=== PATIENT | male | born 1965 | race African-American/Black ===

== ENCOUNTER 2017-11-19 16:39 | Outpatient (CLI) | END 2017-11-19 16:40 | disposition home or self-care (01) | LOC: LAB 16:39 | PROVIDERS: ATTEND Emergency Medicine | DX: E11.69 Type 2 diabetes mellitus with other specified complication (principal); E66.9 Obesity, unspecified; E78.5 Hyperlipidemia, unspecified; I10 Essential (primary) hypertension; Z12.5 Encounter for screening for malignant neoplasm of prostate | CPT/HCPCS: 36415; 80061; 83036; 84443; 85025 ==

== ENCOUNTER 2017-12-28 13:16 | Emergency (ER) ==
[2017-12-28 13:29] VITALS: TEMP 97.6; BMI 68.2
--- NOTE | 2017-12-28 14:03 | ED.PDOC ---
General ED Provider: Dr. DASHA HALLMAN Chief Complaint: Chest Pain Stated Complaint: Short of Air; chest tightness last weekend Time Seen by Physician: 12:50 Mode of Arrival: Wheelchair Information Source: Patient Exam Limitations: No limitations Primary Care Provider: [facility] Nursing and Triage Documentation Reviewed and Agree: Yes Reviewed sepsis parameters & appropriate labs ordered?: Yes (Not applicable) System Inflammatory Response Syndrome: Not Applicable Sepsis Protocol: For patient's 13 years and over: Temp is 96.8 and below OR 101 and greater Pulse >90 BPM Resp >20/minute Acutely Altered Mental Status Are patient's symptoms suggestive of a new infection, such as: -Pneumonia -Skin, Soft Tissue -Endocarditis -UTI -Bone, Joint Infection -Implantable Device -Acute Abdominal Infection -Wound Infection -Meningitis -Blood Stream Catheter Infection -Unknown System Inflammatory Response Syndrome: Not Applicable Review of Systems - Review Of Systems Constitutional: Reports: Diaphoresis Eyes: Reports: No symptoms Respiratory: Reports: Short of air Cardiac: Reports: Chest pain (Right chest) GI: Reports: No symptoms Musculoskeletal: Reports: No symptoms All Other Systems: Reviewed and Negative Past Medical History - Past Medical History Previously Healthy: No (Hx of O2 use; then off for 2 years - now SOA again) Endocrine: Reports: None Cardiovascular: Reports: Hypertension Respiratory: Reports: None Hematological: Reports: None Gastrointestinal: Reports: None Genitourinary: Reports: None Neuro/Psych: Reports: None Musculoskeletal: Reports: None Cancer: Reports: None - Surgical History General Surgical History: Reports: None - Family History Family History: Reports: None - Social History Smoking Status: Never smoker Hx Substance Use: Yes Alcohol Screening: None Physical Exam - Physical Exam Appearance: Well-appearing Pain Distress: None (when examined by me) Neck: Supple Respiratory: Airway patent, Breath sounds clear, Breath sounds equal Cardiovascular: RRR, Pulses normal GI/: Soft, Nontender Musculoskeletal: Normal strength, ROM intact Skin: Warm, Dry, Normal color Neurological: Sensation intact, Motor intact, Alert, Oriented Psychiatric: Affect appropriate, Mood appropriate Interpretation - Radiology Interpretation Radiology Interpretation By: Radiologist Exam Interpreted: Portable CXR (Mild pulmonary vascular congestion) - EKG Interpretation Time of EKG #1: 13:42 Rate: Normal Rhythm: Sinus Ectopy: None ST Segment: Other (ST changes) Re-Evaluation - Re-Evaluation Time of Re-Evaluation: 16:35 Status: Improved (Doing OK while on O2) Vital Signs Stable: Yes Appearance: NAD Lungs: Clear Skin: Warm and Dry - Re-Evaluation Time of Re-Evaluation: 17:30 (Pt does not want to transfer; understands need for tranfer) Status: Unchanged (NAD but drops O2 to 80 when off O2; educated patient re need to transfer) Physician Notification - Case Discussed Physician Notified: Dr. Sorensen Time of Notification: 17:40 (Suggest transfer to [facility]) Physician Notified: Dr. Aguilar/Hospitalist [facility] Time of Notification: 18:05 (Discused pt/transfer) Critical Care Note - Critical Care Note Total Time (mins): 45 Course - Course Hematology/Chemistry: 12/28/17 14:01 12/28/17 14:17 Orders, Labs, Meds: Lab Review 12/28/17 12/28/17 12/28/17 13:50 14:01 14:17 WBC 4.43 RBC 4.61 L Hgb 13.1 L Hct 42.6 MCV 92.4 MCH 28.4 MCHC 30.8 L RDW Coeff of Natividad 15.0 H Plt Count 205 Immature Gran % (Auto) 0.2 Neut % (Auto) 62.8 Lymph % (Auto) 23.7 [place] % (Auto) 10.8 H Eos % (Auto) 2.3 Baso % (Auto) 0.2 Immature Gran # (Auto) 0.0 Neut # 2.8 Lymph # 1.1 [place] # 0.5 Eos # 0.1 Baso # 0.0 Puncture Site Rrad O2 Saturation 76.0 L ABG pH 7.352 ABG pCO2 49.4 H ABG pO2 43.0 L* ABG HCO3 27.4 H ABG Total CO2 29 H ABG Base Excess 2 Lex Test + FiO2 % 21.0 Sodium 141 Potassium 4.7 Chloride 105 Carbon Dioxide 27 Anion Gap 13.7 BUN 20 H Creatinine 1.33 H Estimated GFR (MDRD) 68.00 BUN/Creatinine Ratio 15.03 Glucose 107 H Calcium 8.9 Total Bilirubin 0.6 AST 25 ALT 28 Alkaline Phosphatase 59 Troponin I B-Natriuretic Peptide Total Protein 6.8 Albumin 3.2 L Globulin 3.6 Albumin/Globulin Ratio 0.89 12/28/17 12/28/17 14:17 14:30 WBC RBC Hgb Hct MCV MCH MCHC RDW Coeff of [place]ivid[place] Plt Count Immature Gran % (Auto) Neut % (Auto) Lymph % (Auto) [place] % (Auto) Eos % (Auto) Baso % (Auto) Immature Gran # (Auto) Neut # Lymph # [place] # Eos # Baso # Puncture Site O2 Saturation ABG pH ABG pCO2 ABG pO2 ABG HCO3 ABG Total CO2 ABG Base Excess Lex Test FiO2 % Sodium Potassium Chloride Carbon Dioxide Anion Gap BUN Creatinine Estimated GFR (MDRD) BUN/Creatinine Ratio Glucose Calcium Total Bilirubin AST ALT Alkaline Phosphatase Troponin I 0.0110 B-Natriuretic Peptide 399 H Total Protein Albumin Globulin Albumin/Globulin Ratio Orders Category Date Time Status ABG DRAW REQUEST Stat CARDIO 12/28/17 13:50 Completed EKG-(ED ONLY) Stat CARDIO 12/28/17 13:51 Completed ABG Stat LAB 12/28/17 13:50 Completed BNP [B-TYPE NATRIURETIC PEPTIDE] Stat LAB 12/28/17 14:17 Completed CBC W/ AUTO DIFF Stat LAB 12/28/17 14:01 Completed COMPREHENSIVE METABOLIC PANEL Stat LAB 12/28/17 14:17 Completed TROPONIN I Stat LAB 12/28/17 14:30 Completed CHEST, 1V AP ONLY Stat RADS 12/28/17 14:01 Completed Vital Signs: Temp Pulse Resp BP Pulse Ox 12/28/17 18:02 60 122/90 93 L 12/28/17 13:23 97.6 F 88 28 H 147/87 H 86 L JONATHON Risk Score JONATHON Risk Score: Risk Score Odds of by 30D 0 0.1 (0.1-0.2) 1 0.3 (0.2-0.3) 2 0.4 (0.3-0.5) 3 0.7 (0.6-0.9) 4 1.2 (1.0-1.5) 5 2.2 (1.9-2.6) 6 3.0 (2.5-3.6) 7 4.8 (3.8-6.1) Departure - Departure Time of Disposition: 18:20 Disposition: TSF SHORT-TRM HOSP Discharge Problem: CHF (congestive heart failure) Instructions: Heart Failure (ED) Condition: Stable Pt referred to PMD for follow-up: Yes (Follow up after discharge from hospital) IPMP verified?: No (No narcotic planned) Allergies/Adverse Reactions: Allergies No Known Allergies Allergy (Verified 12/28/17 13:29) Home Medications: Ambulatory Orders Lisinopril/Hydrochlorothiazide [Lisinopril-Hctz 20-12.5 Mg Tab] 1 each PO d Metformin HCl 1,000 mg PO BID 11/19/17 Phentermine HCl 37.5 mg PO PRN PRN 12/28/17 Sildenafil Citrate [Viagra] 100 mg PO PRN PRN 12/28/17
--- NOTE | 2017-12-28 14:33 | DI ---
EXAM: CHEST FRONTAL VIEW HISTORY: Chest pain. COMPARISON: 03/26/2016 FINDINGS: Heart size is prominent. Limited exam. Cannot exclude mild central vascular congestion. No obvious consolidated pneumonia, pneumothorax, pleural fluid or acute bony deformity. IMPRESSION: Cardiomegaly. Questionable mild pulmonary vascular congestion.
[2017-12-28 18:03] VITALS: BP 122/90
== END 2017-12-28 18:30 | disposition short-term general hospital (02) ==
LOC: ED 13:16
DX: I50.9 Heart failure, unspecified (principal); R07.9 Chest pain, unspecified; R06.02 Shortness of breath
CPT/HCPCS: 36415; 80053; 82803; 83880; 84484; 85025; 93005; 93010; 99285

== ENCOUNTER 2018-07-28 11:34 | Outpatient (CLI) | END 2018-07-28 11:35 | disposition home or self-care (01) | LOC: RHC-LAB 11:34 | PROVIDERS: ATTEND Nurse Practitioner Family | DX: E11.69 Type 2 diabetes mellitus with other specified complication (principal); I10 Essential (primary) hypertension; E78.5 Hyperlipidemia, unspecified | CPT/HCPCS: 36415; 80053; 80061; 82043; 83037; 84443; 85025 ==

== ENCOUNTER 2018-11-09 14:44 | Outpatient (CLI) | END 2018-11-09 14:45 | disposition home or self-care (01) | LOC: RHC-LAB 14:44 | PROVIDERS: ATTEND Nurse Practitioner Family | DX: E11.69 Type 2 diabetes mellitus with other specified complication (principal); I10 Essential (primary) hypertension; E66.01 Morbid (severe) obesity due to excess calories; E78.5 Hyperlipidemia, unspecified; Z12.5 Encounter for screening for malignant neoplasm of prostate | CPT/HCPCS: 36415; 80053; 80061; 83036; 84443; 85025 ==

== ENCOUNTER 2019-02-07 08:47 | Outpatient (CLI) | END 2019-02-07 08:48 | disposition home or self-care (01) | LOC: RHC-LAB 08:47 | PROVIDERS: ATTEND Nurse Practitioner Family | DX: E11.69 Type 2 diabetes mellitus with other specified complication (principal); E66.9 Obesity, unspecified; I10 Essential (primary) hypertension | CPT/HCPCS: 36415; 80053; 83036 ==

== ENCOUNTER 2019-03-08 17:12 | Outpatient (CLI) | END 2019-03-08 17:37 | disposition short-term general hospital (02) | LOC: AMBL 17:12 | PROVIDERS: ATTEND Emergency Medicine | DX: R06.9 Unspecified abnormalities of breathing (principal); Z99.81 Dependence on supplemental oxygen ==

== ENCOUNTER 2019-07-07 10:23 | Outpatient (CLI) | END 2019-07-07 10:24 | disposition home or self-care (01) | LOC: RHC-LAB 10:23 | PROVIDERS: ATTEND Nurse Practitioner Family | DX: R81 Glycosuria (principal); R80.9 Proteinuria, unspecified | CPT/HCPCS: 81001; 87086; 87186 ==

== ENCOUNTER 2020-01-13 01:11 | Inpatient (IN) ==
--- NOTE | 2020-01-13 02:02 | ED.PDOC ---
General ED Provider: Dr. SHARLENE THOMPSON Chief Complaint: Shortness of Air Stated Complaint: Patient is a 54 year old male who comes to the ER with complaints of increasing shortness of breath for the past week. Also thinks he may have gained some water weight not sure how much he has gained. Time Seen by Physician: 01:30 Mode of Arrival: Wheelchair Information Source: Patient Primary Care Provider: ISABEL CHAO APRN, FNP-BC Nursing and Triage Documentation Reviewed and Agree: Yes Does patient meet sepsis criteria?: No System Inflammatory Response Syndrome: Not Applicable Sepsis Protocol: For patient's 13 years and over: Temp is 96.8 and below OR 101 and greater Pulse >90 BPM Resp >20/minute Acutely Altered Mental Status Are patient's symptoms suggestive of a new infection, such as: -Pneumonia -Skin, Soft Tissue -Endocarditis -UTI -Bone, Joint Infection -Implantable Device -Acute Abdominal Infection -Wound Infection -Meningitis -Blood Stream Catheter Infection -Unknown Respiratory Complaint Exam Shortness of Air Complaint/Exam Onset/Duration: 1 week Symptoms Are: Still present Timing: Intermittent Initial Severity: Moderate Current Severity: Moderate Character: Reports Dyspnea at rest Aggravating: Reports Weather; Denies Smoke exposure Alleviating: Reports Oxygen Associated Signs and Symptoms: Reports Cough and Rapid breathing Related History: Reports Similar episode History of Healthcare-Acquired Pneumonia: No Pulmonary Embolism Risk Factors: Reports None Cardiac Risk Factors: Reports None Home Oxygen Use: Yes (5 liters ) Recent Stress Test: No Recent Echo/LV Function: No Stridor Present: No Tracheal Deviation: No Subcutaneous Emphysema: No Accessory Muscle Use: No Retractions: Not Present Diminished Breath Sounds: No Prolonged Expiratory Phase: No Unable to Speak Full Sentences: No Fatigue: No Leg Swelling: No Jett's Sign Present: No Grunting Respirations: No Kussmaul Respirations: No Differential Diagnoses: Asthma, CHF and COPD Exacerbation Quality Indicator For Non-Traumatic Chest Pain/Syncope: EKG Performed Review of Systems Review Of Systems Constitutional: Reports No symptoms Eyes: Reports No symptoms Ears, Nose, Mouth, Throat: Reports No symptoms Respiratory: Reports Cough (non productive cough ) and Short of air Cardiac: Denies Chest pain GI: Reports No symptoms Musculoskeletal: Reports No symptoms Skin: Reports No symptoms Neurological: Reports Anxiety All Other Systems: Reviewed and Negative [facility] Medical History (Updated 01/13/20 @ 03:32 by SHARLENE THOMPSON MD) Adverse effect of lisinopril (Acute) Colonoscopy refused (Acute) Diabetes mellitus Hypertension Hypertension (Acute) Other specified events, undetermined intent, initial encounter Physical Exam Physical Exam Appearance: Reports Obese Ill-appearing: Moderate Pain Distress: None Eyes: Reports DENIS and EOMI ENT: Reports Ears normal Neck: Supple Respiratory: Reports Airway patent, Breath sounds clear and Breath sounds equal Cardiovascular: Reports RRR, Pulses normal and No rub GI/: Reports Soft Musculoskeletal: Reports Edema (1-2 + pitting edema ) Skin: Reports Warm and Dry Neurological: Reports Sensation intact, Motor intact, Alert and Oriented Psychiatric: Reports Anxious Interpretation Radiology Interpretation Radiology Interpretation By: Radiologist EKG Interpretation Time of EKG #1: 02:00 Rate: Normal Rhythm: Sinus Ectopy: None [place]: NL ST Segment: Normal Interpretation: Right ventricular Hypertophy, Possible inferor infarct age undetermined. Physician Notification Case Discussed Physician Notified: Carton Stenciler Time of Notification: 03:20 (ok to admit ) Critical Care Note Critical Care Note Total Time (mins): 45 Course Course Hematology/Chemistry: 01/13/20 02:17 01/13/20 02:17 Orders, Labs, Meds: Lab Review 01/13/20 01/13/20 01/13/20 01:45 02:05 02:17 WBC 5.46 RBC 5.32 Hgb 13.6 L Hct 46.4 MCV 87.2 MCH 25.6 L MCHC 29.3 L RDW Coeff of Natividad 17.0 H Plt Count 266 Immature Gran % (Auto) 0.2 Neut % (Auto) 71.0 Lymph % (Auto) 16.5 [place] % (Auto) 9.0 Eos % (Auto) 2.9 Baso % (Auto) 0.4 Immature Gran # (Auto) 0.0 Neut # (Auto) 3.9 Lymph # (Auto) 0.9 [place] # (Auto) 0.5 Eos # (Auto) 0.2 Baso # (Auto) 0.0 Puncture Site Rrad O2 Saturation 66.0 L ABG pH 7.426 ABG pCO2 44.2 ABG pO2 34.0 L* ABG HCO3 29 H ABG Total CO2 30 H ABG Base Excess 5 H Lex Test + FiO2 % 21.0 Sodium Potassium Chloride Carbon Dioxide Anion Gap BUN Creatinine Estimated GFR (MDRD) BUN/Creatinine Ratio Glucose Lactic Acid Calcium Total Bilirubin AST ALT Alkaline Phosphatase NT-Pro-B Natriuret Pep Total Protein Albumin Globulin Albumin/Globulin Ratio Procalcitonin Influ A Molecular Assay Negative by naat Influ B Molecular Assay Negative by naat 01/13/20 01/13/20 01/13/20 02:17 02:17 02:17 WBC RBC Hgb Hct MCV MCH MCHC RDW Coeff of Natividad Plt Count Immature Gran % (Auto) Neut % (Auto) Lymph % (Auto) [place] % (Auto) Eos % (Auto) Baso % (Auto) Immature Gran # (Auto) Neut # (Auto) Lymph # (Auto) [place] # (Auto) Eos # (Auto) Baso # (Auto) Puncture Site O2 Saturation ABG pH ABG pCO2 ABG pO2 ABG HCO3 ABG Total CO2 ABG Base Excess Lex Test FiO2 % Sodium 136.0 Potassium 3.86 Chloride 97.6 L Carbon Dioxide 29.5 Anion Gap 12.76 BUN 47.4 H Creatinine 1.83 H Estimated GFR (MDRD) 47.00 BUN/Creatinine Ratio 25.90 Glucose 119.7 H Lactic Acid 1.65 Calcium 7.90 L Total Bilirubin 0.76 AST 27.2 ALT 19.3 Alkaline Phosphatase 57.9 NT-Pro-B Natriuret Pep 5340.000 H Total Protein 6.59 Albumin 3.70 Globulin 2.89 Albumin/Globulin Ratio 1.28 Procalcitonin 0.07 Influ A Molecular Assay Influ B Molecular Assay Orders Category Date Time Status ABG DRAW REQUEST Stat CARDIO 01/13/20 01:52 Completed ABG DRAW REQUEST Stat CARDIO 01/13/20 03:06 Completed ABG DRAW REQUEST Stat CARDIO 01/13/20 03:15 Ordered ECHOCARDIOGRAM 2D-M MODE Routine CARDIO 01/13/20 03:16 Ordered EKG-(ED ONLY) Stat CARDIO 01/13/20 02:02 Completed NEBULIZER TREATMENT Stat CARDIO 01/13/20 02:03 Completed INTAKE & OUTPUT Q8HR CARE 01/13/20 03:17 Active 2 GRAM SODIUM DIET DIETARY 01/13/20 Breakfast Ordered ED APPLY O2 .ONCE EMERGENCY 01/13/20 01:51 Active ED TINWARE LITHOGRAPH PRESS OPERATOR APPLIED .ONCE EMERGENCY 01/13/20 01:51 Active ED VITAL SIGNS Q1HR EMERGENCY 01/13/20 01:51 Active IV [ED IV/MEDIPORT/POWERPORT] .ONCE EMERGENCY 01/13/20 02:15 Active OXYGEN [ED APPLY O2] .ONCE EMERGENCY 01/13/20 03:20 Active ABG Stat LAB 01/13/20 01:45 Completed ABG Stat LAB 01/13/20 03:15 Ordered BASIC METABOLIC PANEL DAILY@0600 LAB 01/14/20 06:00 Ordered BLOOD CULTURE (ED ONLY) Stat LAB 01/13/20 02:17 Received CBC W/ AUTO DIFF DAILY@0600 LAB 01/14/20 06:00 Ordered CBC W/ AUTO DIFF Stat LAB 01/13/20 02:17 Completed COMPREHENSIVE METABOLIC PANEL Stat LAB 01/13/20 02:17 Completed FLU A/B MOLECULAR Stat LAB 01/13/20 02:05 Completed LACTIC ACID Stat LAB 01/13/20 02:17 Completed NT-PROBNP Stat LAB 01/13/20 02:17 Completed PROCALCITONIN Stat LAB 01/13/20 02:17 Completed TROPONIN I Stat LAB 01/13/20 02:17 Received 0.9 % Sodium Chloride [Saline Flush] MEDS 01/13/20 02:15 Active 1 syr IVF PRN PRN Albuterol Sulfate [Proair Hfa] MEDS 01/13/20 03:24 Ordered 2 inh IH Q4-6H PRN Atenolol [Tenormin] MEDS 01/13/20 09:00 Ordered 50 mg PO DAILY Enoxaparin Sodium [Lovenox] MEDS 01/13/20 09:00 Ordered 40 mg SUBCUT DAILY Furosemide [Lasix] MEDS 01/13/20 02:03 Discontinued 20 mg IVP ONCE STA Furosemide [Lasix] MEDS 01/13/20 09:00 Ordered 40 mg IVP BID Ipratropium/Albuterol Neb [Duoneb] MEDS 01/13/20 02:03 Discontinued 3 ml NEB ONCE STA Losartan Potassium [Cozaar] MEDS 01/13/20 09:00 Ordered 50 mg PO DAILY Metformin HCl [Glucophage] MEDS 01/13/20 09:00 Ordered 500 mg PO BID Methylprednisolone Sod Succ/Pf [Solu-Medrol 125 mg] MEDS 01/13/20 02:10 Discontinued 125 mg IVP ONCE STA Methylprednisolone Sod Succ/Pf [Solu-Medrol 40 mg] MEDS 01/13/20 05:00 Stop Req 40 mg IVP Q8HR Potassium Chloride [Micro-K Cap] MEDS 01/13/20 09:00 Ordered 10 meq PO DAILY dapagliflozin [Farxiga] MEDS 01/13/20 09:00 Ordered 5 mg PO DAILY RESUSCITATION STATUS Routine OTHERS 01/13/20 03:16 Ordered CHEST, 2 VIEWS PA & LAT Stat RADS 01/13/20 01:51 Completed Medications Generic Name Dose Route Start Last Admin Trade Name Frederickq PRN Reason Stop Dose Admin Albuterol Sulfate puff 01/13/20 03:24 Proair Hfa IH Q4-6H PRN shortness of breath Atenolol 50 mg 01/13/20 09:00 Tenormin PO DAILY ROSEMARY Enoxaparin Sodium 40 mg 01/13/20 09:00 Lovenox SUBCUT DAILY ROSEMARY Furosemide 40 mg 01/13/20 09:00 Lasix IVP BID ROSEMARY Losartan Potassium 50 mg 01/13/20 09:00 Cozaar PO DAILY ROSEMARY Metformin HCl 500 mg 01/13/20 09:00 Glucophage PO BID ROSEMARY Methylprednisolone Sodium Succinate 40 mg 01/13/20 05:00 Solu-Medrol 40 Mg IVP Q8HR ROSEMARY Non-Formulary Medication 5 mg 01/13/20 09:00 Dapagliflozin [Farxiga] PO DAILY ROSEMARY Potassium Chloride 10 meq 01/13/20 09:00 Micro-K Cap PO DAILY ROSEAMRY Sodium Chloride 1 syr 01/13/20 02:15 Saline Flush IVF PRN PRN To flush IV Discontinued Medications Generic Name Dose Route Start Last Admin Trade Name Owen PRN Reason Stop Dose Admin Albuterol/Ipratropium 3 ml 01/13/20 02:03 01/13/20 02:10 Duoneb NEB 01/13/20 02:04 3 ml ONCE STA Administration Furosemide 20 mg 01/13/20 02:03 01/13/20 02:14 Lasix IVP 01/13/20 02:04 20 mg ONCE STA Administration Methylprednisolone Sodium Succinate 125 mg 01/13/20 02:10 01/13/20 02:14 Solu-Medrol 125 Mg IVP 01/13/20 02:11 125 mg ONCE STA Administration Vital Signs: Temp Pulse Resp BP Pulse Ox 01/13/20 02:18 69 19 101/64 94 L 01/13/20 01:13 97.8 F 74 36 H 110/53 L 75 L Discharge Plan Discharge Patient Disposition: ADMITTED INPATIENT Discharge Problem: Acute exacerbation of CHF (congestive heart failure) Prescriptions: No Action silver sulfadiazine [Silvadene] 20 GM cream 1 percent topical BID PRN (Reason: lower leg "sores") Qty: 1 RF: 0 phentermine 30 MG capsule 30 mg PO DAILY PRN (Reason: ENERGY) RF: 0 (DME) blood-glucose meter 1 EACH misc 1 ea MC DAILY Qty: 1 RF: 0 (DME) blood sugar diagnostic [Blood Glucose Test] 1 EACH strip 1 ea MC DAILY Qty: 50 RF: 3 (DME) lancets 1 EACH misc 1 ea MC DAILY Qty: 50 RF: 3 sildenafil [Viagra] 100 MG tablet 50 mg PO PRN PRN (Reason: intercourse) Qty: 5 RF: 0 losartan 50 mg tablet 50 mg PO DAILY RF: 0 metolazone 2.5 mg tablet 2.5 mg PO DAILY PRN (Reason: DIURETIC) RF: 0 metformin 500 mg tablet 500 mg PO BID RF: 0 potassium chloride 10 mEq tablet extended release 10 meq PO DAILY RF: 0 bumetanide 1 mg tablet 1 mg PO BID RF: 0 albuterol sulfate [ProAir HFA] 90 mcg/actuation HFA aerosol inhaler 2 inh inhalation Q4-6H PRN (Reason: SHORT OF BREATH/WHEEZING) RF: 0 atenolol 50 mg tablet 50 mg PO DAILY RF: 0 Farxiga 5 mg tablet 5 mg PO DAILY RF: 0 ED Provider: SHARLENE THOMPSON Condition: Fair
[2020-01-13] MEDS ORDERED: LASIX IVP STA (02:03)
[2020-01-13] MEDS ORDERED: DUONEB NEB STA (02:03)
[2020-01-13] MEDS ORDERED: SOLU-MEDROL 125 MG IVP STA (02:10)
[2020-01-13 02:26] LABS: HEMATOCRIT 46.4 % (42.0-52.0)
--- NOTE | 2020-01-13 03:15 | DI ---
EXAM: Chest two views HISTORY: Shortness of breath FINDINGS: Normal cardiac and mediastinal contours. Normal pulmonary vasculature. Lungs are clear. Granulomatous lymph node calcifications of the left hilum. No significant abnormality of the bony t horax. IMPRESSION: No acute cardiopulmonary disease
[2020-01-13] MEDS ORDERED: PROAIR HFA (SINGLE PATIENT USE) IH PRN (03:24)
[2020-01-13 04:30] VITALS: BMI 63.6
[2020-01-13] MEDS ORDERED: ALBUTEROL 0.083% NEB NEB PRN ×2 (04:47→10:59)
[2020-01-13] MEDS: DUONEB NEB SCH ×5 (04:55→22:00)
[2020-01-13] MEDS ORDERED: SOLU-MEDROL 40 MG IVP SCH (05:00)
--- NOTE | 2020-01-13 08:49 | ECHO2D ---
Date of Exam: 01/13/2020 Ordering Physician: HOSPITALIST--ANDREA NOWAK Room #: 122 Reason for Echo: CHF, HTN, DM M-Mode Normal Adult Results LV Dimensions Normal Adult Results AoV Opening excursions >1.6 >1.6 LVEDD-base- 3.5-5.8 4.0 Ao root dimensions 2.0-3.7 3.7 LVESD-base- 3.1-4.6 L. Atrium dimensions 1.9-3.8 5.0 Post. Wall thickness 0.8-1.1 1.6 IV septum (thickness) 0.7-1.2 1.7 Post. Wall excursion 0.72-1.3 NORMAL Septal motion NORMAL Systolic motion R. Ventricular cavity 1.5-2.0 4.5 LVEF 60% 87% Paradoxical septal wall motion NORMAL 2-D : 2-D M Mode Echocardiogram was performed using apical four chamber and left parasternal long and short axis views. Mitral, tricuspid and aortic valves appear to be normal. Contractility of the left ventricle seems to be normal, so is the cavity size. ENLARGED LEFT ATRIAL CAVITY. ENLARGED RIGHT VENTRICLE CAVITY. Aortic root appears to be normal. There is no pericardial effusion. There is no thrombus noted in the left ventricle or left atrial cavity. No mitral valve prolapse noted. M-MODE: MV: NORMAL AV: NORMAL TV: NORMAL PV: CHAMBER SIZE: ENLARGED LEFT ATRIAL CAVITY WALL MOTION: NORMAL PERICARDIUM: NORMAL INTERPRETATION: 1. MODERATE TO SEVERE LEFT VENTRICULAR HYPERTROPHY 2. ENLARGED LEFT ATRIAL CAVITY (5.0 CM)/ ENLARGED RIGHT VENTRICLE CAVITY 3. NORMAL LEFT VENTRICULAR CONTRACTILITY 4. NORMAL VALVES MTDD
[2020-01-13] MEDS ORDERED: TENORMIN PO SCH (09:00)
[2020-01-13] MEDS ORDERED: LASIX IVP SCH (09:00)
[2020-01-13] MEDS ORDERED: MICRO-K CAP PO SCH (09:00)
[2020-01-13] MEDS ORDERED: GLUCOPHAGE PO SCH (09:00)
[2020-01-13] MEDS: LOVENOX SUBCUT SCH (09:09)
[2020-01-13] MEDS: NON-FORMULARY MEDICATION (Dapagliflozin [Farxiga] 5 MG) PO SCH (09:09)
[2020-01-13] MEDS: COZAAR PO SCH (09:09)
--- NOTE | 2020-01-13 11:20 | PCM ---
Chief Complaint Chief Complaint: "dizzy and short of breath" History of Present Illness History of Present Illness: Mr. Lugo is a 54 year old male with hypertension, DM II not on insulin therapy, GEE not using CPAP, chronic kidney disease, morbid obesity and congestive heart failure who presents to the emergency department overnight with complaint of dizziness and shortness of breath. In emergency he is found to be short of breath with hypoxemia by ABG, BNP >5000, CXR without any acute process such as pulmonary edema, O2 sats <90 consistently with oxygen via nasal cannula@5lpm. Hospitalist admission for possible decompensated heart failure and hypoxemia with worsening renal failure. Pt is interviewed and examined at the bedside on the medical unit. No family is present. Pt states he is not sure if he has heart failure. He can't remember if he has had an echocardiogram in the past or not, and, if so, it probably was more than a year ago. Pt is on continuous oxgyen therapy at home. He says he has had problems with leg swelling in the past off and on but not recently. He has noticed that he is getting more and more short of breath and this has worsened over the past 2 weeks. His breathing is especially short with any exertion such as walking or bathing. He says he doesn't usually have chest pain, but, when he does have some discomfort "across my chest, I take some ibuprofen and it goes away". He hasn't taken nitroglycerin. He has been able to continue to take care of his ADLs with multiple rest periods during the day. He uses a cane to assist in ambulation due to feeling dizzy and gait being off. He says he has sleep a pnea and has CPAP machine but hasn't really used it. He is not able to use the mask due to feeling he is smothering. He says he didn't know there were nasal prongs he could use. He says the CPAP company staff calls him but he never discussed this with them. He states he was to go back for follow up with PCP but didn't go as scheduled so he then ran out of some of his medicines. He saw his primary care provider about 1 1/2 months ago and everything seemed to be fine. Pt is a rather poor historian and admits he has memory issues which he attributes to "being almost 55 years old and being a man, your memory gets short". Review of Systems Constitutional: Reports weakness and fatigue Eyes: Denies blurred vision, double-vision, discharge, itching, pain, redness, photophobia and other Ears: Denies pain, bleeding, drainage, ringing, hearing loss and other Nose: Denies bleeding, congestion, discharge and other Throat: Denies pain, swelling, voice change and other Mouth: Denies bleeding, pain, swelling and other Respiratory: Reports shortness of air Cardiovascular: Reports chest pain (states relieved with ibuprofen; denies orthopnea) Gastrointestinal: Denies abdominal pain, nausea, vomiting, diarrhea, melena, hematemesis, hematochezia, dysphagia, constipation and other Genitourinary: Reports frequency Neurological: Reports headache and dizziness Musculoskeletal: Denies pain, swelling in joints and other Skin: Denies rash, pruritus, lacerations, wounds, bruising and other Endocrine: Reports polyuria Psychiatric: Denies depression, anxiety, sleeplessness, hopelessness, suicidal, hallucinations and other Habits: Denies tobacco use, substance use, alcohol use and other Allergies Allergies Allergy/AdvReac Type Severity Reaction Status Date / Time atorvastatin calcium AdvReac Mild chills Verified 01/13/20 01:27 [From Lipitor] [facility] Medical History (Updated 01/13/20 @ 14:38 by [facility] ANALYTICS DIRECTOR) Adverse effect of lisinopril (Acute) Colonoscopy refused (Acute) Diabetes mellitus Diabetes mellitus with hyperglycemia, without long-term current use of insulin (Acute) Hypertension Hypertension (Acute) GEE (obstructive sleep apnea) (Acute) Other specified events, undetermined intent, initial encounter Surgical History (Updated 01/13/20 @ 04:14 by LICHA JOAQUIN RN) Status post bariatric surgery Family History (Updated 01/13/20 @ 14:26 by [facility] ANALYTICS DIRECTOR) BROTHER Hyperlipidemia Hypertension Grandfather/Grandmother Diabetes Mother No problems noted. FATHER No problems noted. Other Stomach cancer Social History (Updated 01/13/20 @ 14:27 by [facility] ANALYTICS DIRECTOR) Smoking and tobacco status: Never smoker Alcohol intake: former Details: previously heavy drinker of lilliam for about 8 years; quit 10 years ago Household members: none Housing: apartment Lives independently: Yes Current diet type/program: diabetic and low salt Well-balanced diet: rarely Water heater temperature set < 120 degrees: Yes Working smoke detector in home: Yes Fire extinguisher in home: Yes Carbon monoxide detector in home: Yes Firearms in home: Yes Firearms unloaded and locked: Yes Medications Medications: Medications Generic Name Dose Route Start Last Admin Trade Name Freq PRN Reason Stop Dose Admin Albuterol Sulfate 2 puff 01/13/20 03:24 Proair Hfa IH Q4-6H PRN shortness of breath Albuterol Sulfate 2.5 mg 01/13/20 10:59 Albuterol 0.083% Neb NEB RTQ4H PRN Wheezing Albuterol/Ipratropium 3 ml 01/13/20 06:00 01/13/20 10:16 Duoneb NEB 3 ml RTQ4H ROSEMARY Administration Atenolol 50 mg 01/13/20 09:00 01/13/20 09:08 Tenormin PO 50 mg DAILY ROSEMARY Administration Enoxaparin Sodium 40 mg 01/13/20 09:00 01/13/20 09:09 Lovenox SUBCUT 40 mg DAILY ROSEMARY Administration Furosemide 40 mg 01/13/20 13:00 Lasix IVP Q8HR ROSEMARY Insulin Human Regular 0 unit 01/13/20 10:50 Humulin R SUBCUT PRN PRN Hyperglycemia Protocol Losartan Potassium 50 mg 01/13/20 09:00 01/13/20 09:09 Cozaar PO 50 mg DAILY ROSEMARY Administration Metformin HCl 500 mg 01/13/20 09:00 01/13/20 09:08 Glucophage PO 500 mg BID ROSEMARY Administration Non-Formulary Medication 5 mg 01/13/20 09:00 01/13/20 09:09 Dapagliflozin [Farxiga] PO 5 mg DAILY ROSEMARY Administration Potassium Chloride 10 meq 01/13/20 09:00 01/13/20 09:08 Micro-K Cap PO 10 meq DAILY ROSEMARY Administration Sodium Chloride 1 syr 01/13/20 02:15 Saline Flush IVF PRN PRN To flush IV Body Composition Height: 6 ft Weight: 469 lb Body Mass Index (BMI): 63.6 Vital Signs Temperature: 97.9 F Pulse Rate: 71 Respiratory Rate: 18 Blood Pressure: 101/64 O2 Sat by Pulse Oximetry: 87 Physical Examination Appearance: Reports Well-appearing and Obese Eyes: Reports DENIS, EOMI and Conjunctiva clear Neck: Supple Respiratory: Reports Airway patent and Breath sounds diminished (breath sounds seem diminished may be related to girth; no wheezes crackles heard; slight increased work of breathing noted) Cardiovascular: Reports RRR and Pulses normal GI/: Reports Soft, Nontender, Bowel sounds normal and No Organomegaly (abdomen large protuberant; HSM difficult to assess due to girth) Musculoskeletal: Reports Normal strength, ROM intact and Edema (trace non- pitting edema bilateral LE) Skin: Reports Warm, Dry and Normal color (bilat LE discolored due to previous vascular congestion) Neurological: Reports Sensation intact, Motor intact, Cranial nerves intact, Alert and Oriented Psychiatric: Reports Affect appropriate (poor memory, appears out of keeping with stated age) Lab/Tests/Diagnostic Imaging Lab/Tests/Diagnostic Imaging: Lab Review 01/13/20 01/13/20 01/13/20 01:45 02:05 02:17 WBC 5.46 RBC 5.32 Hgb 13.6 L Hct 46.4 MCV 87.2 MCH 25.6 L MCHC 29.3 L RDW Coeff of Natividad 17.0 H Plt Count 266 Immature Gran % (Auto) 0.2 Neut % (Auto) 71.0 Lymph % (Auto) 16.5 Brooke % (Auto) 9.0 Eos % (Auto) 2.9 Baso % (Auto) 0.4 Immature Gran # (Auto) 0.0 Neut # (Auto) 3.9 Lymph # (Auto) 0.9 Brooke # (Auto) 0.5 Eos # (Auto) 0.2 Baso # (Auto) 0.0 Puncture Site Rrad O2 Saturation 66.0 L ABG pH 7.426 ABG pCO2 44.2 ABG pO2 34.0 L* ABG HCO3 29 H ABG Total CO2 30 H ABG Base Excess 5 H Lex Test + FiO2 % 21.0 Sodium Potassium Chloride Carbon Dioxide Anion Gap BUN Creatinine Estimated GFR (MDRD) BUN/Creatinine Ratio Glucose Lactic Acid Calcium Total Bilirubin AST ALT Alkaline Phosphatase Troponin I NT-Pro-B Natriuret Pep Total Protein Albumin Globulin Albumin/Globulin Ratio Procalcitonin Influ A Molecular Assay Negative by naat Influ B Molecular Assay Negative by naat 01/13/20 01/13/20 01/13/20 02:17 02:17 02:17 WBC RBC Hgb Hct MCV MCH MCHC RDW Coeff of Natividad Plt Count Immature Gran % (Auto) Neut % (Auto) Lymph % (Auto) Brooke % (Auto) Eos % (Auto) Baso % (Auto) Immature Gran # (Auto) Neut # (Auto) Lymph # (Auto) Brooke # (Auto) Eos # (Auto) Baso # (Auto) Puncture Site O2 Saturation ABG pH ABG pCO2 ABG pO2 ABG HCO3 ABG Total CO2 ABG Base Excess Lex Test FiO2 % Sodium 136.0 Potassium 3.86 Chloride 97.6 L Carbon Dioxide 29.5 Anion Gap 12.76 BUN 47.4 H Creatinine 1.83 H Estimated GFR (MDRD) 47.00 BUN/Creatinine Ratio 25.90 Glucose 119.7 H Lactic Acid 1.65 Calcium 7.90 L Total Bilirubin 0.76 AST 27.2 ALT 19.3 Alkaline Phosphatase 57.9 Troponin I NT-Pro-B Natriuret Pep 5340.000 H Total Protein 6.59 Albumin 3.70 Globulin 2.89 Albumin/Globulin Ratio 1.28 Procalcitonin 0.07 Influ A Molecular Assay Influ B Molecular Assay 01/13/20 02:17 WBC RBC Hgb Hct MCV MCH MCHC RDW Coeff of Natividad Plt Count Immature Gran % (Auto) Neut % (Auto) Lymph % (Auto) Brooke % (Auto) Eos % (Auto) Baso % (Auto) Immature Gran # (Auto) Neut # (Auto) Lymph # (Auto) Brooke # (Auto) Eos # (Auto) Baso # (Auto) Puncture Site O2 Saturation ABG pH ABG pCO2 ABG pO2 ABG HCO3 ABG Total CO2 ABG Base Excess Lex Test FiO2 % Sodium Potassium Chloride Carbon Dioxide Anion Gap BUN Creatinine Estimated GFR (MDRD) BUN/Creatinine Ratio Glucose Lactic Acid Calcium Total Bilirubin AST ALT Alkaline Phosphatase Troponin I < 0.012 NT-Pro-B Natriuret Pep Total Protein Albumin Globulin Albumin/Globulin Ratio Procalcitonin Influ A Molecular Assay Influ B Molecular Assay Orders Category Date Time Status ADMIT PATIENT INPATIENT .TO [facility] (MONITORED BED) ADMISSION 01/13/20 04:40 Active ABG DRAW REQUEST Stat CARDIO 01/13/20 01:52 Completed ABG DRAW REQUEST Stat CARDIO 01/13/20 03:06 Completed ABG DRAW REQUEST Stat CARDIO 01/13/20 03:15 Completed ECHOCARDIOGRAM 2D-M MODE Routine CARDIO 01/13/20 03:16 Completed EKG-(ED ONLY) Stat CARDIO 01/13/20 02:02 Completed NEBULIZER TREATMENT Routine CARDIO 01/13/20 04:47 Active NEBULIZER TREATMENT Stat CARDIO 01/13/20 02:03 Completed OXYGEN Routine CARDIO 01/13/20 06:20 Active ACCUCHECK (MED/SURG, SCU) [BLOOD GLUCOSE MONITORING] CARE 01/13/20 05:55 Active 0630,1100,1700,2100 GIVE HS SNACK 2100 CARE 01/13/20 09:45 Ordered INTAKE & OUTPUT Q8HR CARE 01/13/20 03:17 Completed Notify RT of Treatment ONCE CARE 01/13/20 04:47 Active TELEMETRY MONITORING TELE CARE 01/13/20 04:41 Active 2 GRAM SODIUM DIET DIETARY 01/13/20 Breakfast Ordered ADA 1800 BLAKE. DIET DIETARY 01/13/20 Lunch Ordered HS SNACK DIETARY 01/13/20 Dinner Ordered CONSULT OUTREACH EDUCATOR ONCE OUTREACH EDUCATOR 01/13/20 04:30 Active ED APPLY O2 .ONCE EMERGENCY 01/13/20 01:51 Active ED LEADER ASSEMBLER APPLIED .ONCE EMERGENCY 01/13/20 01:51 Active ED VITAL SIGNS Q8HR EMERGENCY 01/13/20 01:51 Completed IV [ED IV/MEDIPORT/POWERPORT] .ONCE EMERGENCY 01/13/20 02:15 Active OXYGEN [ED APPLY O2] .ONCE EMERGENCY 01/13/20 03:20 Active ABG Stat LAB 01/13/20 01:45 Completed ABG Stat LAB 01/13/20 03:15 Ordered BASIC METABOLIC PANEL DAILY@0600 LAB 01/14/20 06:00 Ordered BLOOD CULTURE (ED ONLY) Stat LAB 01/13/20 02:17 Received CBC W/ AUTO DIFF DAILY@0600 LAB 01/14/20 06:00 Ordered CBC W/ AUTO DIFF Stat LAB 01/13/20 02:17 Completed COMPREHENSIVE METABOLIC PANEL Stat LAB 01/13/20 02:17 Completed FLU A/B MOLECULAR Stat LAB 01/13/20 02:05 Completed LACTIC ACID Stat LAB 01/13/20 02:17 Completed NT-PROBNP Stat LAB 01/13/20 02:17 Completed PROCALCITONIN Stat LAB 01/13/20 02:17 Completed TROPONIN I Stat LAB 01/13/20 02:17 Completed 0.9 % Sodium Chloride [Saline Flush] MEDS 01/13/20 02:15 Active 1 syr IVF PRN PRN Albuterol Sulfate 0.083% Neb [Albuterol 0.083% Neb] MEDS 01/13/20 04:47 Discontinued 2.5 mg NEB RTQ2H PRN Albuterol Sulfate 0.083% Neb [Albuterol 0.083% Neb] MEDS 01/13/20 10:59 Ordered 2.5 mg NEB RTQ4H PRN Albuterol Sulfate [Proair Hfa] MEDS 01/13/20 03:24 Active 2 puff IH Q4-6H PRN Atenolol [Tenormin] MEDS 01/13/20 09:00 Hold 50 mg PO DAILY Enoxaparin Sodium [Lovenox] MEDS 01/13/20 09:00 Active 40 mg SUBCUT DAILY Furosemide [Lasix] MEDS 01/13/20 02:03 Discontinued 20 mg IVP ONCE STA Furosemide [Lasix] MEDS 01/13/20 09:00 Discontinued 40 mg IVP BID Furosemide [Lasix] MEDS 01/13/20 13:00 Ordered 40 mg IVP Q8HR Insulin Regular, Human [Humulin R] MEDS 01/13/20 10:50 Ordered See Protocol SUBCUT PRN PRN Ipratropium/Albuterol Neb [Duoneb] MEDS 01/13/20 02:03 Discontinued 3 ml NEB ONCE STA Ipratropium/Albuterol Neb [Duoneb] MEDS 01/13/20 06:00 Active 3 ml NEB RTQ4H Losartan Potassium [Cozaar] MEDS 01/13/20 09:00 Active 50 mg PO DAILY Metformin HCl [Glucophage] MEDS 01/13/20 09:00 Hold 500 mg PO BID Methylprednisolone Sod Succ/Pf [Solu-Medrol 125 mg] MEDS 01/13/20 02:10 Discontinued 125 mg IVP ONCE STA Potassium Chloride [Micro-K Cap] MEDS 01/13/20 09:00 Active 10 meq PO DAILY dapagliflozin [Farxiga] MEDS 01/13/20 09:00 Active 5 mg PO DAILY RESUSCITATION STATUS Routine OTHERS 01/13/20 03:16 Ordered CHEST, 2 VIEWS PA & LAT Stat RADS 01/13/20 01:51 Completed Medications Generic Name Dose Route Start Last Admin Trade Name Freq PRN Reason Stop Dose Admin Albuterol Sulfate 2 puff 01/13/20 03:24 Proair Hfa IH Q4-6H PRN shortness of breath Albuterol Sulfate 2.5 mg 01/13/20 10:59 Albuterol 0.083% Neb NEB RTQ4H PRN Wheezing Albuterol/Ipratropium 3 ml 01/13/20 06:00 01/13/20 10:16 Duoneb NEB 3 ml RTQ4H ROSEMARY Administration Atenolol 50 mg 01/13/20 09:00 01/13/20 09:08 Tenormin PO 50 mg DAILY ROSEMARY Administration Enoxaparin Sodium 40 mg 01/13/20 09:00 01/13/20 09:09 Lovenox SUBCUT 40 mg DAILY ROSEMARY Administration Furosemide 40 mg 01/13/20 13:00 Lasix IVP Q8HR ROSEMARY Insulin Human Regular 0 unit 01/13/20 10:50 Humulin R SUBCUT PRN PRN Hyperglycemia Protocol Losartan Potassium 50 mg 01/13/20 09:00 01/13/20 09:09 Cozaar PO 50 mg DAILY ROSEMARY Administration Metformin HCl 500 mg 01/13/20 09:00 01/13/20 09:08 Glucophage PO 500 mg BID ROSEMARY Administration Non-Formulary Medication 5 mg 01/13/20 09:00 01/13/20 09:09 Dapagliflozin [Farxiga] PO 5 mg DAILY ROSEMARY Administration Potassium Chloride 10 meq 01/13/20 09:00 01/13/20 09:08 Micro-K Cap PO 10 meq DAILY ROSEMARY Administration Sodium Chloride 1 syr 01/13/20 02:15 Saline Flush IVF PRN PRN To flush IV Discontinued Medications Generic Name Dose Route Start Last Admin Trade Name Freq PRN Reason Stop Dose Admin Albuterol Sulfate 2.5 mg 01/13/20 04:47 Albuterol 0.083% Neb NEB RTQ2H PRN Wheezing Albuterol/Ipratropium 3 ml 01/13/20 02:03 01/13/20 02:10 Duoneb NEB 01/13/20 02:04 3 ml ONCE STA Administration Furosemide 20 mg 01/13/20 02:03 01/13/20 02:14 Lasix IVP 01/13/20 02:04 20 mg ONCE STA Administration Furosemide 40 mg 01/13/20 09:00 01/13/20 09:09 Lasix IVP 40 mg BID ROSEMARY Administration Methylprednisolone Sodium Succinate 125 mg 01/13/20 02:10 01/13/20 02:14 Solu-Medrol 125 Mg IVP 01/13/20 02:11 125 mg ONCE STA Administration Assessment (1) Acute exacerbation of CHF (congestive heart failure): Status: Acute Code(s): I50.9 - Heart failure, unspecified SNOMED Code(s): 51633992 Qualifiers: Heart failure type: systolic Qualified Code(s): I50.23 - Acute on chronic systolic (congestive) heart failure (2) Hypertension: Status: None SNOMED Code(s): 55345047 Qualifiers: Hypertension type: renovascular hypertension Qualified Code(s): I15.0 - Renovascular hypertension (3) Diabetes mellitus with hyperglycemia, without long-term current use of insulin: Status: Acute Code(s): E11.65 - Type 2 diabetes mellitus with hyperglycemia SNOMED Code(s): 37868256 Qualifiers: Diabetes mellitus type: type 2 Qualified Code(s): E11.65 - Type 2 diabe von mellitus with hyperglycemia (4) Acute decompensated heart failure: Status: Acute Code(s): I50.9 - Heart failure, unspecified SNOMED Code(s): 63545208 (5) Right heart failure with preserved right ventricular function: Status: Acute Code(s): I50.810 - Right heart failure, unspecified SNOMED Code(s): 461416468 (6) GEE (obstructive sleep apnea): Status: Acute Code(s): G47.33 - Obstructive sleep apnea (adult) (pediatric) SNOMED Code(s): 38386222 (7) CKD (chronic kidney disease) stage 3, GFR 30-59 ml/min: Status: Acute Code(s): N18.3 - Chronic kidney disease, stage 3 (moderate) SNOMED Code(s): 048003464 (8) Acute kidney injury superimposed on chronic kidney disease: Status: Acute Code(s): N17.9 - Acute kidney failure, unspecified; N18.9 - Chronic kidney disease, unspecified SNOMED Code(s): 61928643 (9) Morbid obesity with BMI of 60.0-69.9, adult: Status: Acute Code(s): E66.01 - Morbid (severe) obesity due to excess calories; Z68.44 - Body mass index (BMI) 60.0-69.9, adult SNOMED Code(s): 354615039 (10) Morbid obesity due to excess calories: Status: Acute Code(s): E66.01 - Morbid (severe) obesity due to excess calories SNOMED Code(s): 900864124 Plan Plan: acute on chronic CHF exacerbation, BNP >5000 on admission - pt with noncompliance to diet, fluid restriction, and medications per his report - diurese, 1000cc fluid restriction acute decompensated heart failure, may be related to worsening renal function or vice versa - diurese, cont telemetry, oxygen therapy right heart failure with preserved ejection fraction - ECHO 01/12 with LVEF >70%; normal heart valves; LV function normal; moderate to severe LV hypertrophy; enlarged left atrial cavity; enlarged right ventricle cavity; no pericardial effusion, no thrombus, no MVP; no paradoxical septal wall motion. -- continue IV diuresis with lasix that was started in ED overnight - cont ARB; stop tenormin and start coreg BID for improved filling/preload. appreciate cardiology recommendations - strict I&Os; daily weights NORBERTO on CKD - possible cardiorenal syndrome rt to chronic heart failure and worsening renal function - possible volume contraction related to diuretics - pt taking ibuprofen at home for atypical chest pain per his report - unclear what pts baseline creatinine is; BUN elevated, likely due to diuresis at home; GFR decreased at 47 currently - cont IV diuretics, monitor BUN/Cr; adjust diuretics as needed to preserve kidney function - no NSAIDS, avoid nephrotoxins; monitor BMP daily HTN, essential vs cardiorenal hypertension - CXR didn't show pulmonary edema, unclear if pt has component of pulmonary HTN - BP stable currently; cont home losartan; monitor and adjust as needed DM type II not on insulin therapy - metformin on hold; cont farxiga; obtain hemoglobin A1c; 1800cal ADA diet; add sliding scale insulin w/freq glucose checks and hypoglycemia protocol GEE not using CPAP - cautioned pt on deleterious effects on blood pressure, heart function, and kidney function with untreated sleep apnea oxygen dependence - per ABG pt with hypoxemia on admission; sats <90% nasal cannula@5lpm; monitor for decompensation and possible need for biPAP morbid obesity -pt with hx of previous rouen y procedure >15 years ago. states has gained about 200 pounds of weight loss back since 2004 -continue 1800 blake ADA 2gm sodium diet -advised pt he will need to stick to this and watch his portion sizes -gaming pit boss consult
[2020-01-13] MEDS: HUMULIN R SUBCUT PRN ×3 (11:53→21:55)
[2020-01-13] MEDS: LASIX IVP SCH ×2 (12:29→20:43)
[2020-01-13] MEDS: COREG PO SCH (17:28)
[2020-01-13] MEDS ORDERED: MYLICON DROPS PO PRN (21:14)
[2020-01-13] MEDS ORDERED: MYLICON PO PRN (21:29)
[2020-01-13] MEDS: BENADRYL PO SCH (21:57)
[2020-01-14] MEDS: DUONEB NEB SCH ×6 (01:20→22:50)
[2020-01-14 05:15] LABS: HEMATOCRIT 47.1 % (42.0-52.0)
[2020-01-14] MEDS: LASIX IVP SCH ×3 (06:04→20:31)
[2020-01-14] MEDS: NON-FORMULARY MEDICATION (Dapagliflozin [Farxiga] 5 MG) PO SCH (08:48)
[2020-01-14] MEDS: MICRO-K CAP PO SCH (08:48)
[2020-01-14] MEDS: COZAAR PO SCH (08:48)
[2020-01-14] MEDS: COREG PO SCH ×2 (08:48→16:44)
[2020-01-14] MEDS: LOVENOX SUBCUT SCH (08:49)
--- NOTE | 2020-01-14 10:24 | PCM.PROG ---
Date Seen by Provider: 01/14/20 Time Seen by Provider: 09:20 Subjective: pt seated on bedside. no family or staff in room. pt states he feels somewhat better today. feels his breathing is improved. c/o gas and heartburn. states had cereal and milk this morning and dairy gives him gas and sometimes stools. received call overnight from nurse stating pt wanted something for gas and for sleep. states he takes an OTC sleep aid but doesn't remember the name of it. pt states he took tablets lastnight and it helped his sleep. states asked to have his oxygen volume reduced lastnight from 5 lpm to 4lpm. felt too high and causing dryness. states has long tubing at home and keeps his oxygen on 3 to 3.5 lpm at home on nasal cannula. Objective: Vitals: T=97.7 F, P=70, R=20, UD=163/63, SPO2=90 HEENT: [PERRLA, EOMs intact, no sclerial icterus or conjuntival injection] Neck: [supple no JVD] Lungs: [CTA bilaterally] CVS: [RRR, S1 S2] Abdomen: [very large protuberant soft non tender; distention and HSM difficult to assess due to girth] Extremities: [MAEW, symetric, FROM, trace non-pitting edema bilat LE] Neurological: [A&O x 4; SERVICE CENTER SPECIALIST 11-XII grossly intact; questionable memory issues likely rt to chronic hypoxemia] Skin: [warm dry,no lesions, no weeping] Lab/Tests/Diagnostic Imaging: [A1c 6.62; BUN 43 Cr 1.67 GFR 52] (1) Acute exacerbation of CHF (congestive heart failure): Status: Acute Code(s): I50.9 - Heart failure, unspecified SNOMED Code(s): 56676619 (2) Hypertension: Status: None SNOMED Code(s): 14663656 (3) Diabetes mellitus with hyperglycemia, without long-term current use of insulin: Status: Acute Code(s): E11.65 - Type 2 diabetes mellitus with hyperglycemia SNOMED Code(s): 45506961 (4) Acute decompensated heart failure: Status: Acute Code(s): I50.9 - Heart failure, unspecified SNOMED Code(s): 34364851 (5) Right heart failure with preserved right ventricular function: Status: Acute Code(s): I50.810 - Right heart failure, unspecified SNOMED Code(s): 785506595 (6) GEE (obstructive sleep apnea): Status: Acute Code(s): G47.33 - Obstructive sleep apnea (adult) (pediatric) SNOMED Code(s): 89979348 (7) CKD (chronic kidney disease) stage 3, GFR 30-59 ml/min: Status: Acute Code(s): N18.3 - Chronic kidney disease, stage 3 (moderate) SNOMED Code(s): 656512038 (8) Acute kidney injury superimposed on chronic kidney disease: Status: Acute Code(s): N17.9 - Acute kidney failure, unspecified; N18.9 - Chronic kidney disease, unspecified SNOMED Code(s): 97015248 (9) Morbid obesity with BMI of 60.0-69.9, adult: Status: Acute Code(s): E66.01 - Morbid (severe) obesity due to excess calories; Z68.44 - Body mass index (BMI) 60.0-69.9, adult SNOMED Code(s): 807654930 (10) Morbid obesity due to excess calories: Status: Acute Code(s): E66.01 - Morbid (severe) obesity due to excess calories SNOMED Code(s): 950350118 Plan: acute on chronic CHF exacerbation, BNP >5000 on admission - pt with noncompliance to diet, fluid restriction, and medications per his report - continue diuresis, 2gm Na diet, 1000cc fluid restriction, nebs prn acute decompensated heart failure, may be related to worsening renal function or vice versa - edith monae telemetry, oxygen therapy - breathing improved - pt is oxygen dependent, try to wean back to his home levels, pt states on 3 lpm at home right heart failure with preserved ejection fraction - ECHO 01/12 with LVEF >70%; normal heart valves; LV function normal; moderate to severe LV hypertrophy; enlarged left atrial cavity; enlarged right ventricle cavity; no pericardial effusion, no thrombus, no MVP; no paradoxical septal wall motion. -- continue IV lasix q8hrs for now; reduce to BID in am; pt may need adjustment in home po bumex dose - cont cozaar, coreg - stop tenormin and start coreg BID for improved filling/preload. appreciate cardiology recommendations - strict I&Os, pt -585cc today; daily weights, pt down 10 pounds today (465 to 459) - pt would benefit from follow up with admissions rn at discharge NORBERTO on CKD - improved, BUN/Cr reduced 43/1.67 respectively with improved GFR 52 - possible cardiorenal syndrome rt to chronic heart failure and worsening renal function - possible volume contraction/prerenal related to diuretics - pt taking ibuprofen at home for atypical chest pain per his report, unclear effect on creatinine - unclear what pts baseline creatinine is; BUN elevated, likely due to diuresis at home; GFR decreased at 47 currently - cont IV diuretics, monitor BUN/Cr; adjust diuretics as needed to preserve kidney function - no NSAIDS, avoid nephrotoxins; monitor BMP daily HTN, essential vs cardiorenal hypertension - CXR didn't show pulmonary edema, unclear if pt has component of pulmonary HTN - BP stable currently; cont home losartan; monitor and adjust as needed DM type II not on insulin therapy - metformin on hold; cont farxiga - hemoglobin A1c 6.62; received 3units insulin overnight - continue 1800cal ADA diet, sliding scale insulin w/freq glucose checks and hypoglycemia protocol GEE not using CPAP - educated pt on increased risk for heart disease and uncontrolled BP of untreated sleep apnea - pt states he will speak his respiratory company and seek/try nasal applications for his CPAP oxygen dependence - chronic hypoxemia; sats remain <90% on 5 lpm nasal cannula - pt feels his breathing is improved today and has requested that O2 being reduced to 4 lpm - per ABG pt with hypoxemia on admission; monitor for decompensation and possible need for biPAP morbid obesity -pt with hx of previous rouen y procedure >15 years ago. states has gained about 200 pounds of weight loss back since 2004 -continue 1800 sergio ADA 2gm sodium diet -advised pt he will need to stick to this and watch his portion sizes -director client consult GERD -cont prn simethocone for c/o gas -start PPI insomnia - given benadryl with good result lastnight; cont prn for sleep dispo: possibly in am as long as pt continues to do well and is able to return to his home dose of oxygen DVT PPx: lovenox
[2020-01-14] MEDS: HUMULIN R SUBCUT PRN ×2 (10:57→20:39)
[2020-01-14] MEDS: PEPCID PO SCH (16:45)
[2020-01-14] MEDS ORDERED: ZANTAC PO SCH (17:00)
[2020-01-14] MEDS: BENADRYL PO SCH (20:26)
[2020-01-14] MEDS ORDERED: BENADRYL PO SCH (21:00)
[2020-01-15] MEDS: DUONEB NEB SCH ×3 (01:50→09:46)
[2020-01-15] MEDS: LASIX IVP SCH (05:19)
[2020-01-15] MEDS: PEPCID PO SCH (05:57)
[2020-01-15] MEDS: HUMULIN R SUBCUT PRN (06:10)
[2020-01-15] MEDS ORDERED: PROTONIX PO SCH (06:30)
--- NOTE | 2020-01-15 07:17 | PCM.DC ---
Final Diagnosis: Chest Pain on Exertion Acute on Chronic CHF Acute on Chronic Kidney Disease, Stage 3. (1) Chest pain on exertion: Status: Acute Code(s): R07.9 - Chest pain, unspecified SNOMED Code(s): 46745116 (2) Acute on chronic diastolic (congestive) heart failure: Status: Acute Code(s): I50.33 - Acute on chronic diastolic (congestive) heart failure SNOMED Code(s): 397000451 (3) Acute kidney injury superimposed on chronic kidney disease: Status: Acute Code(s): N17.9 - Acute kidney failure, unspecified; N18.9 - Chronic kidney disease, unspecified SNOMED Code(s): 45177445 (4) CKD (chronic kidney disease) stage 3, GFR 30-59 ml/min: Status: Acute Code(s): N18.3 - Chronic kidney disease, stage 3 (moderate) SNOMED Code(s): 772382778 (5) Hypertension: Status: Chronic SNOMED Code(s): 28166981 Qualifiers: Hypertension type: renovascular hypertension Qualified Code(s): I15.0 - Renovascular hypertension (6) Diabetes mellitus with hyperglycemia, without long-term current use of insulin: Status: Chronic Code(s): E11.65 - Type 2 diabetes mellitus with hyperglycemia SNOMED Code(s): 06037147 Qualifiers: Diabetes mellitus type: type 2 Qualified Code(s): E11.65 - Type 2 diabetes mellitus with hyperglycemia (7) Anemia in chronic kidney disease: Status: Acute Code(s): N18.9 - Chronic kidney disease, unspecified; D63.1 - Anemia in chronic kidney disease SNOMED Code(s): 350151102 Qualifiers: Chronic kidney disease stage: stage 3 (moderate) Qualified Code(s): N18.3 - Chronic kidney disease, stage 3 (moderate); D63.1 - Anemia in chronic kidney disease (8) GEE (obstructive sleep apnea): Status: Chronic Code(s): G47.33 - Obstructive sleep apnea (adult) (pediatric) SNOMED Code(s): 39677384 (9) Morbid obesity with BMI of 60.0-69.9, adult: Status: Acute Code(s): E66.01 - Morbid (severe) obesity due to excess calories; Z68.44 - Body mass index (BMI) 60.0-69.9, adult SNOMED Code(s): 915054612 Reason for Hospitalization: Hypoxemia d/t Acute on Chronic Diastolic CHF complicated w/ Acute on Chronic Kidney Disease, Stage 3 needing diuresis and monitoring for complications. Prognosis at Discharge: Guarded--being transferred to [place], [place] for Acute chest pain w/ any exertion and abnormal EKG indicating ischemia; needs cardiology consult and likely further cardiology testing. Transfer report given to Dr. Porras 9:45AM. Condition at Discharge: Stable w/ O2 @ 4L/NC w/ sat 90%. Medications at Discharge: Ambulatory Orders Medication Instructions Recorded phentermine 30 mg PO DAILY PRN 05/20/19 blood sugar diagnostic [Blood #50 strip 06/03/19 Glucose Test Strip] blood-glucose meter #1 ea 06/03/19 lancets #50 ea 06/03/19 sildenafil [Viagra] 50 mg PO PRN PRN #5 tab-cap 07/26/19 silver sulfadiazine [Silvadene] 1 percent TOPICAL BID PRN #1 tb 09/19/19 albuterol sulfate [ProAir HFA] 2 inh INHALATION Q4-6H PRN 01/13/20 atenolol 50 mg PO DAILY 01/13/20 bumetanide 1 mg PO BID 01/13/20 dapagliflozin [Farxiga] 5 mg PO DAILY 01/13/20 losartan 50 mg PO DAILY 01/13/20 metformin 500 mg PO BID 01/13/20 metolazone 2.5 mg PO DAILY PRN 01/13/20 potassium chloride 10 meq PO DAILY 01/13/20 Active Medications Generic Name Dose Route Start Last Admin Trade Name Freq PRN Reason Stop Dose Admin Albuterol Sulfate 2 puff 01/13/20 03:24 Proair Hfa IH Q4-6H PRN shortness of breath Albuterol Sulfate 2.5 mg 01/13/20 10:59 Albuterol 0.083% Neb NEB RTQ4H PRN Wheezing Albuterol/Ipratropium 3 ml 01/13/20 06:00 01/15/20 09:46 Duoneb NEB 3 ml RTQ4H ROSEMARY Administration Atenolol 50 mg 01/13/20 09:00 01/13/20 09:08 Tenormin PO 50 mg DAILY ROSEMARY Administration Carvedilol 12.5 mg 01/13/20 17:30 01/15/20 08:42 Coreg PO 12.5 mg BIDWM ROSEMARY Administration Diphenhydramine HCl 50 mg 01/13/20 21:27 01/14/20 20:26 Benadryl PO 50 mg BEDTIME ROSEMARY Administration Enoxaparin Sodium 40 mg 01/13/20 09:00 01/15/20 08:44 Lovenox SUBCUT 40 mg DAILY ROSEMARY Administration Famotidine 20 mg 01/14/20 17:00 01/15/20 05:57 Pepcid PO 20 mg BIDAC ROSEMARY Administration Furosemide 40 mg 01/13/20 13:00 01/15/20 05:19 Lasix IVP 40 mg Q8HR ROSEMARY Administration Insulin Human Regular 0 unit 01/13/20 10:50 01/15/20 06:10 Humulin R SUBCUT 4 unit PRN PRN Administration Hyperglycemia Protocol Losartan Potassium 50 mg 01/13/20 09:00 01/15/20 08:42 Cozaar PO 50 mg DAILY ROSEMARY Administration Metformin HCl 500 mg 01/13/20 09:00 01/13/20 09:08 Glucophage PO 500 mg BID ROSEMARY Administration Non-Formulary Medication 5 mg 01/13/20 09:00 01/15/20 08:41 Dapagliflozin [Farxiga] PO 5 mg DAILY ROSEMARY Administration Potassium Chloride 10 meq 01/14/20 08:00 01/15/20 08:42 Micro-K Cap PO 10 meq DAILYWM ROSEMARY Administration Simethicone 120 mg 01/13/20 21:29 01/13/20 21:56 Mylicon PO 120 mg Q6H PRN Administration Gas Sodium Chloride 1 syr 01/13/20 02:15 01/14/20 20:31 Saline Flush IVF 1 syr PRN PRN Administration To flush IV Lab/Diagnostics: Laboratory Results WBC 6.64 K/ul (4.2-10.2) 01/14/20 04:53 RBC 5.35 10^6/ul (4.70-6.10) 01/14/20 04:53 Hgb 13.7 g/dl (14.0-18.0) L 01/14/20 04:53 Hct 47.1 % (42.0-52.0) 01/14/20 04:53 MCV 88.0 fl (80.0-94.0) 01/14/20 04:53 MCH 25.6 pg (27.0-31.0) L 01/14/20 04:53 MCHC 29.1 (31.8-35.4) L 01/14/20 04:53 RDW Coeff of Natividad 17.1 % (11.6-14.8) H 01/14/20 04:53 Plt Count 270 10^3/uL (140-440) 01/14/20 04:53 Immature Gran % (Auto) 0.3 % (0.0-5.0) 01/14/20 04:53 Neut % (Auto) 67.0 % (42.2-75.2) 01/14/20 04:53 Lymph % (Auto) 17.6 (10.0-50.0) 01/14/20 04:53 Miner % (Auto) 12.2 (0-10) H 01/14/20 04:53 Eos % (Auto) 2.3 % (0.0-7.0) 01/14/20 04:53 Baso % (Auto) 0.6 % (0.0-3.0) 01/14/20 04:53 Immature Gran # (Auto) 0.0 (0.0-1.0) 01/14/20 04:53 Neut # (Auto) 4.5 K/ul (2.0-6.9) 01/14/20 04:53 Lymph # (Auto) 1.2 K/uL (0.60-3.4) 01/14/20 04:53 Miner # (Auto) 0.8 K/uL (0.4-2.0) 01/14/20 04:53 Eos # (Auto) 0.2 K/ul (0.0-0.7) 01/14/20 04:53 Baso # (Auto) 0.0 K/uL (0-0.2) 01/14/20 04:53 Puncture Site Lrad 01/14/20 22:45 O2 Saturation 87.0 % (95-100) L 01/14/20 22:45 ABG pH 7.405 (7.35-7.45) 01/14/20 22:45 ABG pCO2 55.7 mmHg (35-45) H 01/14/20 22:45 ABG pO2 54.0 mmHg (85-100) L* 01/14/20 22:45 ABG HCO3 35 (22.0-26.0) H 01/14/20 22:45 ABG Total CO2 37 (22.0-28.0) H 01/14/20 22:45 ABG Base Excess 10 (-2.0-2.0) H 01/14/20 22:45 Lex Test + 01/14/20 22:45 O2 Delivery Device Nc 01/14/20 22:45 Oxygen Liter Flow 4.50 01/14/20 22:45 FiO2 % 38.0 % 01/14/20 22:45 Sodium 139.3 mmol/L (134.5-145) 01/14/20 04:53 Potassium 3.87 mmol/L (3.5-5.1) 01/14/20 04:53 Chloride 96.4 mmol/L (98-107) L 01/14/20 04:53 Carbon Dioxide 35.7 mmol/L (22-30.0) H 01/14/20 04:53 Anion Gap 11.07 01/14/20 04:53 BUN 43.0 mg/dL (9-20) H 01/14/20 04:53 Creatinine 1.67 mg/dL (0.60-1.10) H 01/14/20 04:53 Estimated GFR (MDRD) 52.00 mL/min 01/14/20 04:53 BUN/Creatinine Ratio 25.74 01/14/20 04:53 Glucose 135.3 mg/dL (74-106) H 01/14/20 04:53 Hemoglobin A1c 6.62 (4.0-6.0) H 01/13/20 02:17 Lactic Acid 1.65 mmol/L (0.7-2.1) 01/13/20 02:17 Calcium 8.98 mg/dL (8.4-10.2) 01/14/20 04:53 Total Bilirubin 0.76 mg/dL (0.2-1.3) 01/13/20 02:17 AST 27.2 U/L (17-59) 01/13/20 02:17 ALT 19.3 U/L (0-50) 01/13/20 02:17 Alkaline Phosphatase 57.9 U/L (38-126) 01/13/20 02:17 Troponin I < 0.012 ng/ml (0.0000-0.120) 01/13/20 02:17 NT-Pro-B Natriuret Pep 5340.000 pg/mL (0-124) H 01/13/20 02:17 Total Protein 6.59 g/dL (6.3-8.2) 01/13/20 02:17 Albumin 3.70 g/dL (3.5-5.0) 01/13/20 02:17 Globulin 2.89 01/13/20 02:17 Albumin/Globulin Ratio 1.28 01/13/20 02:17 Procalcitonin 0.07 ng/mL (<0.05) 01/13/20 02:17 Influ A Molecular Assay Negative by naat (NEGATIVE) 01/13/20 02:05 Influ B Molecular Assay Negative by naat (NEGATIVE) 01/13/20 02:05 Patient: RODGER REHMAN MR #: [id number] : 1965 Age: 54 Sex: M Report Number: [id number] Date of Exam: 01/13/2020 Ordering Physician: HOSPITALIST--LENNY NOWAK Room #: 122 Reason for Echo: CHF, HTN, DM M-Mode Normal Adult Results LV Dimensions Normal Adult Results AoV Opening excursions >1.6 >1.6 LVEDD-base- 3.5-5.8 4.0 Ao root dimensions 2.0-3.7 3.7 LVESD-base- 3.1-4.6 L. Atrium dimensions 1.9-3.8 5.0 Post. Wall thickness 0.8-1.1 1.6 IV septum (thickness) 0.7-1.2 1.7 Post. Wall excursion 0.72-1.3 NORMAL Septal motion NORMAL Systolic motion R. Ventricular cavity 1.5-2.0 4.5 LVEF 60% 87% Paradoxical septal wall motion NORMAL 2-D : 2-D M Mode Echocardiogram was performed using apical four chamber and left parasternal long and short axis views. Mitral, tricuspid and aortic valves appear to be normal. Contractility of the left ventricle seems to be normal, so is the cavity size. ENLARGED LEFT ATRIAL CAVITY. ENLARGED RIGHT VENTRICLE CAVITY. Aortic root appears to be normal. There is no pericardial effusion. There is no thrombus noted in the left ventricle or left atrial cavity. No mitral valve prolapse noted. M-MODE: MV: NORMAL AV: NORMAL TV: NORMAL PV: CHAMBER SIZE: ENLARGED LEFT ATRIAL CAVITY WALL MOTION: NORMAL PERICARDIUM: NORMAL INTERPRETATION: 1. MODERATE TO SEVERE LEFT VENTRICULAR HYPERTROPHY 2. ENLARGED LEFT ATRIAL CAVITY (5.0 CM)/ ENLARGED RIGHT VENTRICLE CAVITY 3. NORMAL LEFT VENTRICULAR CONTRACTILITY 4. NORMAL VALVES Dictated By HILDA ORTEGA MD Dictating Date/Time: 01/13/20 0800 Boat Outfitting Supervisor: EDUARDO Signed By HILDA ORTEGA MD Signed Date/Time: 01/14/20 1231 Patient: RODGER REHMAN LAcct:[id number] Record: [id number] : 1965Loc: EDRoom/Bed: Age/Sex: 54 / MADM Status: REG ERDate of Service: 01/13/20 Ordering Physician: SHARLENE THOMPSON MD Procedure(s): CHEST, 2 VIEWS PA & LAT Report Number(s): [id number] Accession Number(s): [id number] cc: ISABEL PENA APRN; SHARLENE THOMPSON MD EXAM: Chest two views HISTORY: Shortness of breath FINDINGS: Normal cardiac and mediastinal contours. Normal pulmonary vasculature. Lungs are clear. Granulomatous lymph node calcifications of the left hilum. No significant abnormality of the bony thorax. IMPRESSION: No acute cardiopulmonary disease Dictated By:JANN EAST Signed By:JANN EAST Dictated Date/Time: 01/13/20306 Transcribed Date/Time: 01/13/20306 Signed Date/Time: 01/13/20314 Education Provided to Patient and Family: Patient educated re: this AM EKG findings, concerns for chest pain w/ exertion, and need for cardiology consult w/ transfer to [facility] to Dr. Porras. Follow-ups: Follow-up w/ Isabel Pena APRN, upon discharge from [facility] as per hospitalist. Discharge Disposition: Transfer ([facility]. ) Hospital Course: 01/13/2020 Rodger Rehman is a 54 year old male patient of Isabel Pena APRN with CHF, CKD, hypertension, DM II not on insulin therapy(01/13/2020 A1C 6.62), Morbid Obesity (WT. 458lbs 01/15/2020), GEE not using CPAP, who presents to [facility] ER 01/13/2020 1:01 w/ onset >2 weeks of worsening severe SOB at rest and w/ exertion w/ dizziness. The patient states he is on chronic O2 per NC at home 3-3.5 L and had to increase it 5 L to be able to breath. Upon ER admission his ABG's indicated severe hypoxemia O2 sat 66%, pO2 34.0, pCO2 44.2, HCO3 29H, Tot CO2 2.30, pCO2 4 4.2, and pH 7.426. Labs also indicated BNP 5340: acute on CKD Stage 3 w/ BUN 47.4, Creat 1.83, and CXR without any acute cardiopulmonary process. Hospitalist admission for possible decompensated heart failure and hypoxemia with worsening renal failure. 01/14/2020 Seen by Hospitalist Lenny Nowak APRN, w/ Lasix 40mg IV every 8 hrs started, 1000cc fluid restriction, and I&O w/ telemetry monitoring and ECHO ordered. ECHO per Dr. Edwin Ortega, chemical analyst noted right heart failure with preserved ejection fraction; LVEF 87%; normal heart valves; LV function normal; moderate to severe LV hypertrophy; enlarged left atrial cavity; enlarged right ventricle cavity; no pericardial effusion, no thrombus, no MVP; no paradoxical septal wall motion. 01/15/2020 Patient weight today down 11lbs since ER admission 458 lbs. Patient up to BR w/ O2 on at 4L/NC and c/o's of moderate mid-sternal chest pressure lasting approximately 2 minutes and resolved when MAIL CARRIER hospitalist came in to the room. Patient states he has had this chest pain several times a day for last 2 months with any exertion. EKG done noting NSR Rate 71; RVH, Possible Inferior infarct, age undetermined, ST & T wave abnormality, consider Anterolateral ischemia; abnormal EKG --slightly worsened from 01/13/2020 admission EKG. Will send copy of both EKG's on patient transfer. Patient did have 2 troponins after admission w/ both <0.012; no CK's done. Feel patient is improving but concerns for ischemia w/ hard stretched BLE edema w/ CP and CKD and hypoxemia concerning. Transferring for higher level of care.
[2020-01-15] MEDS: NON-FORMULARY MEDICATION (Dapagliflozin [Farxiga] 5 MG) PO SCH (08:41)
[2020-01-15] MEDS: COZAAR PO SCH (08:42)
[2020-01-15] MEDS: MICRO-K CAP PO SCH (08:42)
[2020-01-15] MEDS: COREG PO SCH (08:42)
[2020-01-15] MEDS: LOVENOX SUBCUT SCH (08:44)
[2020-01-15 08:55] VITALS: BP 111/72; TEMP 97.9
--- NOTE | 2020-01-15 09:04 | PCM.PROG ---
Critical Care Notes: 01/15/2020 9:00 Patient has been experiencing for 2 week 5-05/11 rated mid- sternal chest pressure lasting 1-2 minutes w/ any exertion. Notes swelling BLE, fatigue, SOB at rest and exertion, recliner orthopnea, "extreme" frontal headache w/ straining for BM, and running out of his medication w/ no PCP f-u for 1.5 months. Patient states he has "never been this bad off before." He is also noting increased indigestion, and stomach bloating. Denies CP radiation, diaphoresis, or N/V. Patient had ECHO here per Dr. Ortega--see d/c summary notes for results. CXR in morbidly obese male is negative for cardiopulmonary issues??? Pt. weighs 458 lbs this AM w/ 11 lb wt. loss w/ Lasix 40mg IV every 8 hrs since ER admission 01/13/2020. Discussed AM labs w/ patient and his continued chest pain on exertion; feel patient needs further cardiology consult w/ stress test and possible heart cath. Patient agrees to transfer to [facility] where he was a patient approximately 1 yr ago for similar symptoms. Patient also remains hypoxic w/ O2/NC. 88% on 4L. Called CP and discussed O2 sats w/ Whitley, RT specialist, and will increase NC to 5L as needed; Whitley is performing transfer EKG now. 9:06 [facility] triage nurse, Dona, returned CLERICAL PROOFREADER Hospitalist call for transfer--CP w/ exertion, CHF, Acute on Chronic, w/ Acute on Chronic CKD stage 3. Triage nurse questions answered as per protocol; transfer hospitalist to return call. Discussed transfer w/ MARCELLA Scruggs @ [facility]. 9:47 [facility] transfer center, nurse Jeanie, returned call for transfer w/ Dr. Porras. HPI, labs, physical assessment, and current therapy w/ EKG's and CXR reviewed w/ Dr. Porras and concerns for ischemia and cardiology consult. Dr. Porras has accepted patient w/ dx of Acute on Chronic Diastolic CHF. MD informed of current status w/ weight today down 11lbs since ER admission to 458 lbs. Patient up to BR w/ O2 on at 4L/NC and c/o's of moderate mid-sternal chest pressure lasting approximately 2 minutes and resolved when CLERICAL PROOFREADER hospitalist came in to the room. Patient states he has had this chest pain several times a day for last 2 weeks with any exertion. This AM EKG is noting NSR Rate 71; RVH, Possible Inferior infarct, age undetermined, ST & T wave abnormality, consider Anterolateral ischemia; abnormal EKG --slightly worsened from 01/13/2020 admission EKG. Will send copy of both EKG's on patient transfer. Patient did have 2 troponins after admission w/ both <0.012; no CK's done. Feel patient is improving but concerns for ischemia w/ hard stretched BLE edema w/ CP and CKD and hypoxemia concerning. Transferring for higher level of care. Critical Care Time--65 minutes Nurse huddle, calls to [facility] Transfer Center, review of current and past patient records, ECHO, EKG's this admission and past, and review of patient symptoms w/ recent EKG results, and treatment options considering hospital transfer for further cardiac evaluation w/ heart cath if determined necessary per cardiology. Patient agrees w/ hospital transfer and cardiology consultation.
== END 2020-01-15 11:12 | disposition short-term general hospital (02) | DRG 292 ==
LOC: ED 01:11 → MEDSURG B 03:40
PROVIDERS: ADMIT Nurse Practitioner Family; ATTEND Nurse Practitioner Family
DX: R42 Dizziness and giddiness; I10 Essential (primary) hypertension; R51 Headache; R60.0 Localized edema; D63.1 Anemia in chronic kidney disease; I50.9 Heart failure, unspecified; Z91.14 Patient's other noncompliance with medication regimen; G47.33 Obstructive sleep apnea (adult) (pediatric); R06.02 Shortness of breath; N17.9 Acute kidney failure, unspecified; R53.1 Weakness; Z68.44 Body mass index [BMI] 60.0-69.9, adult; E11.9 Type 2 diabetes mellitus without complications; E66.9 Obesity, unspecified; N18.3 Chronic kidney disease, stage 3 (moderate); R53.83 Other fatigue; R07.9 Chest pain, unspecified; Z99.81 Dependence on supplemental oxygen; R09.02 Hypoxemia